=== PATIENT | male | born 1955 | race Hispanic/Latino ===

== ENCOUNTER 2024-11-10 18:21 | Emergency (ER) | payer MEDICARE ==
[~2024-11-10] VITALS: Ht 180.3 cm; Wt 111.1 kg
[2024-11-10 18:58] LABS: BASOPHILS % 1.3 % (0.0-1.0); EOSINOPHILS % 2.4 % (0.0-6.0); LYMPHOCYTES % 40.9 % (18.0-39.1); MONOCYTES % 5.5 % (4.4-11.3); NEUTROPHILS % 49.7 % (38.7-80.0); RED CELL DISTRIBUTION WIDTH 13.1 % (11.7-14.4)
[2024-11-10 19:05] LABS: INR 0.89
[2024-11-10 19:17] LABS: EST GLOMERULAR FILTRATION RATE 74 ML/MIN (>=60)
[2024-11-10] MEDS ORDERED: IOPAMIDOL 370 MG/ML 100 ML INFUS..BTL INJ ONE (19:21)
[2024-11-10] MEDS ORDERED: SODIUM CHLORIDE 0.9% 100 ML ONE (19:21)
[2024-11-10] MEDS: SODIUM CHLORIDE 0.9% 1000ML 1,000 ML IV STA (19:26)
[2024-11-10] MEDS: ASPIRIN 325 MG TAB PO STA (19:26)
[2024-11-10 23:00] VITALS: PULSE 76; RESP 18; TEMP 97.8
[2024-11-10 23:24] VITALS: BP 153/76; PULSE 80; RESP 18; O2SAT 100
== END 2024-11-10 23:02 | disposition home or self-care (01) ==
LOC: ER 18:33
DX: R20.2 Paresthesia of skin (principal); G45.9 Transient cerebral ischemic attack, unspecified; I67.1 Cerebral aneurysm, nonruptured; I10 Essential (primary) hypertension; R94.31 Abnormal electrocardiogram [ECG] [EKG]
CPT/HCPCS: 36415; 70450; 70496; 70498; 71045; 80053; 82550; 83690; 83880; 84484; 85025; 85610; 93005; 99284; J7030; J7050; Q9967